=== PATIENT | female | born 1985 | race Caucasian/White ===

== ENCOUNTER 2016-12-10 11:42 | Outpatient (CLI) | payer OTHER ==
--- NOTE | 2016-12-10 14:12 | DIAGNOSTIC IMAGING REPORT ---
PROCEDURE: US OB 1ST TRIMESTER W/TRANSVAG INDICATION: SIZE,DATES TECHNIQUE: Wang scale, color, and spectral Doppler transabdominal sonographic images of the first trimester gravid uterus were obtained. COMPARISON: None. FINDINGS: TRANSABDOMINAL SCANS: The gravid uterus is anteverted in position and contains a fundal gestational sac with a moderate decidual response. There is a thin linear perigestational fluid collection in the lower uterine segment without active vascularity in or around this region. No suspicious perigestational hemorrhage. The cervix is grossly closed. A pole with an average crown-rump length of 9.4 mm is present. There is detectable cardiac activity in the fetus in a rate of 153 beats per minute. A yolk sac and unfused amnion were visible. Gestational sac morphology appears normal. Left maternal ovary has a normal size and follicular echotexture. The right was not seen. IMPRESSION: 1. Single living intrauterine with gestational age of 7 weeks 0 days and estimated due date of 07/29/2017. 2. Thin linear perigestational fluid collection, likely small implantation bleed. Grossly closed cervix.
== END 2016-12-10 23:00 ==
LOC: US SRH 11:42
DX: Z34.91 Encounter for supervision of normal pregnancy, unspecified, first trimester (principal); Z3A.01 Less than 8 weeks gestation of pregnancy

== ENCOUNTER 2017-01-14 08:25 | Outpatient (CLI) | payer OTHER | END 2017-01-14 23:00 | disposition home or self-care (01) | LOC: LAB SRH 08:25 | DX: Z34.81 Encounter for supervision of other normal pregnancy, first trimester (principal) | CPT/HCPCS: 90004; 90074; 90078; 90261; 90364; 90599; 90600; 90605; 90606; 90710; 90851; 92863; 93140; 98480; 99777 ==